=== PATIENT | male | born 1940 | race Caucasian/White ===

== ENCOUNTER → 2019-10-23 11:59 | Outpatient (CLI) | payer OTHER, SELFPAY ==
--- NOTE | 2019-10-23 | DI.US.S_ITS ---
PROCEDURE: US CAROTID DOPPLER BI INDICATIONS: CAROTID STENOSIS TECHNIQUE: Color and pulse Doppler interrogation was performed of both carotid systems, with image documentation and velocity measurements. COMPARISON: None. FINDINGS: Stenosis calculations are based on SRU ([employer] in [employer]) criteria. The flow velocities and the arterial waveforms are normal within both carotid arterial systems. Atherosclerotic plaque is seen on both sides. The estimated degree of internal carotid artery stenosis is less than 50%. Antegrade flow is confirmed within both vertebral arteries. IMPRESSION: No hemodynamically significant stenosis is seen. Atherosclerotic plaque is noted bilaterally. Dictated by: Bertin Arango M.D. on 10/23/2019 at 12:24 Approved by: Bertin Arango M.D. on 10/23/2019 at 12:26
--- NOTE | 2019-10-23 | DI.US.S_ITS ---
PROCEDURE: US RETRO PERITONEAL LIMITED INDICATIONS: FOLLOW-UP AAA TECHNIQUE: Real time scanning was performed of the aorta and iliac arteries, with image documentation. COMPARISON: None. FINDINGS: Aorta: Proximal aortic diameter cannot be measured due to to overlying bowel gas as was previously the case. Mid-aorta measures 2.3 cm. Distal aortic diameter is aneurysmal, measuring up to 3.2 cm AP, 3.6 cm transverse over a craniocaudad length measuring 5.2 cm cm. Iliac arteries: Right common iliac artery measures 1.8 cm. Left common iliac artery measures 2.0 cm. 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 The fusiform aneurysm in that area currently measures up to 3.2 x 3.6 cm tapering above and below over a craniocaudad length of 5.2 cm. 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 on 10/23/2019 at 14:48 Approved by: Jaleel Yip M.D. on 10/23/2019 at 14:50
== END ==
PROVIDERS: PCP Internal Medicine; Referring Provider Internal Medicine Cardiovascular Disease; Visit Provider Internal Medicine Cardiovascular Disease
DX: I65.23 Occlusion and stenosis of bilateral carotid arteries (principal); I71.4 Abdominal aortic aneurysm, without rupture
CPT/HCPCS: 76775; 93880